=== PATIENT | male | born 1965 | race Caucasian/White ===

== ENCOUNTER 2017-10-02 14:04 | Outpatient (CLI) | payer OTHER ==
[2017-10-02] MEDS ORDERED: ASPIR 8181 MG ORAL (16:47)
[2017-10-02] MEDS ORDERED: VITAMIN B COMP1 EAC7 PO (16:47)
[2017-10-02] MEDS ORDERED: VITAMIN D400 UNI5 PO (16:47)
--- NOTE | 2017-10-02 16:50 | GI Initial Consult Note ---
History of Present Illness General Date patient seen: Oct 02, 2017 Time patient seen: 16:44 Referring physician: CHAVO Reason for Consultation: COLONOSCOPY Present Illness HPI 51 year old male referred by Dr. Santos for routine colonoscopy screening. He presents today with c/o of no general GI symptoms. Denies any unintentional weight loss or changes in dietary habits. No signs of abuse or neglect. Patient is not fall risk. He has history of colonoscopy at the age of 46 back then for new onset of rectal bleeding found with hemorrhoids. In addition, with hx of colonic polyps. Denies any current rectal bleeding. Home Meds Reported Medications Cholecalciferol (Vitamin D3) (Vitamin D) 400 Unit Tablet, 400 UNIT PO, TAB 10/02/17 Vit B Comp/C/Fa/Iron/Vit E (VITAMIN B COMPLEX TABLET) 1 Each Tablet, 1 EACH PO, TAB 10/02/17 Aspirin* (ASPIR 81*) 81 Mg Tablet., 81 MG ORAL DAILY, TAB 10/02/17 Med list reviewed/reconciled: Yes Allergies: Coded Allergies: No Known Allergies (Unverified , 10/02/17) Patient History History Provided By: Patient PMH Narrative Arthritis Hemorrhoids Colonic polyps Past Surgical History: Knee surgery Family History Narrative Father >> Throat CA Mother >> Pancreatic CA Social History Narrative Seldom ETOH tobacco use, quit over 20 years ago. daily coffee Review of Systems All Other Systems: negative except mentioned in HPI Physical Exam T 98.1 BP 122/74 P 103 95 RA HT 6 1 WT 209.6 Sp02 EP Interpretation: reviewed, normal General Appearance: well appearing, no apparent distress, alert Head: normocephalic EENT: PERRL/EOMI, normal ENT inspection Neck: supple Respiratory: normal breath sounds, no respiratory distress Cardiovascular: normal rate Gastrointestinal: normal inspection, non tender, soft, normal bowel sounds, non -distended Rectal: deferred Genitourinary: deferred Musculoskeletal: normal inspection, back normal Neurologic: normal inspection, alert, oriented x3, responsive Psychiatric: normal inspection, judgement/insight normal, memory normal Skin: normal inspection, normal color, no rash, warm/dry, palpation normal, well hydrated Lymphatic: normal inspection, no adenopathy GI: Plan Problems: (1) Colonoscopy planned (2) Arthritis (3) Hemorrhoid (4) Polyp, colonic Plan Colonoscopy to be scheduled pending prior authorization, will contact patient. - CLD & (Nulytely/Suprep/Movi-Prep) prep instructions given and acknowledged by patient. - NPO @ HI day prior procedure explained. Seen with Dr. Weeks. Thank you for this patient referral. Renée Davis N.P. Oct 02, 2017 16:50
== END 2017-10-02 14:36 | disposition home or self-care (01) ==
LOC: PAN 14:04
DX: K63.5 Polyp of colon (principal); M19.90 Unspecified osteoarthritis, unspecified site; K64.9 Unspecified hemorrhoids; Z79.82 Long term (current) use of aspirin; Z80.8 Family history of malignant neoplasm of other organs or systems; Z80.9 Family history of malignant neoplasm, unspecified; Z87.891 Personal history of nicotine dependence
CPT/HCPCS: 99201